=== PATIENT | male | born 1950 | race Caucasian/White ===

== ENCOUNTER 2016-08-27 08:37 | Inpatient (IN) | payer BC ==
--- NOTE | ~2016-08-27 | HP ---
History And Physical [place] [id number] [place]. [address] NAME: KAYLAN HUERTAS : 46 STATUS : [facility] [id number] AGE: 66 ADM/REG DATE : 08/27/16 MR#: [id number] REPORT SERV DATE: 08/27/16 DICTATED BY: GOOD RATLIFF DATE: 08/27/16 REPORT STATUS : Draft TRANSCRIBED BY: MODAshley DATE: 08/27/16 DATE OF ADMISSION: 08/27/2016 REASON FOR ADMISSION: Fractured orbit and syncopal episode. HISTORY OF PRESENT ILLNESS: This is a 66-year-old white male, who has been having the flu for the last week prior to that he had some sinusitis. He had been seeing his primary care physician Dr. Anton at the [facility], and was on some medication. He got up to go to the bathroom today, was going to brush his teeth. He fell out, loss of consciousness. Hit the floor. He does have a history of coronary artery stenting in the past for atherosclerotic cardiovascular disease. He does note that his atorvastatin does make him sleepy in the morning. He suspect this may be the problem. He does not know how long he was out. His neighbor Dr. Dahiana Barnes came to see about him and ambulance was summoned. The patient was brought to the emergency room at [facility]. Dr. Cornell Benavides evaluated the patient in the emergency room, and did a suture repair of a laceration over his right eye. He has tremendous ecchymoses on the right side. The patient was subjected to a CT scan of the face, and it does show evidence of an orbital floor depressed consistent with a blowout fracture. There are gas and hematoma extending into the extraconal portion. There does not appear to be any entrapment of the muscles. He has zygomatic arch on the right side that is slightly bowed suggesting some trauma. There are evidence of nasal bone fractures on the right and the left side in the anterior and also fractured nasal septum. The medial and posterior wall of the right maxillary sinus represent a tripod type of fracture with opacification of the right maxillary sinus. The frontal sinuses are intact. The orbital rim demonstrates nondisplaced right-sided fracture, and there appears to be more sharply defined area consistent with the fracture perhaps on the left side. The lateral orbital wall on the right side is comminuted. Dr. Jacques, the patient's Ear, Nose, and Throat doctor was contacted. He does not do facial trauma and deferred to Plastic Surgery. Dr. Anthony Pham is business development consultant and Dr. Darnell Pederson answered. He believes this is an elective repair at some point in the future, and we will see him in the office early next week through Dr. Renny Coleman. Dr. Domingo Lynne is his automotive service consultant. I called in Dr. Calzada, business development consultant. The patient's vision is improving and he felt that he could be seen in the office on Tuesday. We are left with a man who was sick during the last week, has a syncopal episode this morning after standing up, and will be admitted to observation for consideration of need for further hospitalization. PAST MEDICAL HISTORY: He has had no hospitalizations here for some time. He did have a coronary stent back in 2009, records have been purged. HOME MEDICATIONS: Include the following: Tylenol 1000 mg three times a day as needed, atorvastatin 10 mg p.o. daily, Effient 10 mg p.o. daily after the cardiac stent, and levothyroxine 25 mcg p.o. daily. History And Physical [address] [address] NAME: KAYLAN HUERTAS : 46 STATUS : ADM IN [facility]#: [id number] AGE: 66 ADM/REG DATE : 08/27/16 MR#: [id number] REPORT SERV DATE: 08/27/16 DICTATED BY: GOOD RATLIFF DATE: 08/27/16 REPORT STATUS : Draft TRANSCRIBED BY: ENMA DATE: 08/27/16 ALLERGIES: HE IS ALLERGIC TO THE FOLLOWING THINGS: FLOUNDER, GREEN BEANS, ORANGES, SEEDS AND NUTS, SPINACH AND TURKEY. SOCIAL HISTORY: He is . His last year. 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 [place] He attends [employer], and does not smoke cigarettes. He does not take any alcohol. FAMILY HISTORY: He is from [place], he has some siblings live in [place], does not have their help very much, he had two brothers and two sisters. Mother and father had high blood pressure. He has one daughter and son who live in the local area. REVIEW OF SYSTEMS: He had no chest pain or shortness of breath. No fever, chills, or night sweats. He does not know why he passed out, does not know how long he was out. He did have stool and bladder incontinence. He has had no fits, seizures, convulsions before. No melena or hematemesis. No chest pain or shortness of breath. No cough. He did have the flu recently, but no recent fever, chills, or night sweats. The remainder of the review of systems is negative. PHYSICAL EXAMINATION: GENERAL: White male, in no acute distress. VITAL SIGNS: His blood pressure was 126/72 on arrival, with a heart rate of 61, respiratory rate 19, and oxygen saturation 96%. HEENT: Huge ecchymoses on the right side, slit can be seen only of the eye and without full examination of the left side, has extraocular moves that are intact. Sclerae are clear. Conjunctivae pink. NECK: No bruit. No JVD. There is no adenopathy. CHEST: Clear to A and P. HEART: Regular S1, S2 without murmur, gallop, or click. ABDOMEN: Soft, nontender. Bowel sounds are positive. EXTREMITIES: Have no edema. Distal pulses are intact dorsalis pedis, posterior tibial. NEUROLOGIC: He withdraws to plantar stimulation. Shift Production Associate is equal and symmetric bilaterally. Coordination is intact. He has no tremor. LYMPHATICS: Negative. SKIN: Marked ecchymoses on the right side laceration now repaired by Dr. Benavides above the right eye. LABORATORY DATA: The CT scan of the face is as above. The CT scan of the brain showed intracranial portion negative. Sodium 135, potassium 3.6, creatinine 1.3, BUN 22, and glucose 115. Troponin 0.03. Magnesium 2.1. The chest showed COPD with no focal airspace disease. Hemoglobin was 14.3, hematocrit 38.9, platelet count 125,000, and white count 8.5. INR is 1.2. ASSESSMENT: History And Physical [address] [address] NAME: KAYLAN HUERTAS : 46 STATUS : ADM IN PAT#: [id number] AGE: 66 ADM/REG DATE : 08/27/16 MR#: [id number] REPORT SERV DATE: 08/27/16 DICTATED BY: GOOD RATLIFF DATE: 08/27/16 REPORT STATUS : Draft TRANSCRIBED BY: ENMA DATE: 08/27/16 1. Marked right-sided ecchymosis. 2. Laceration of the right forehead. 3. Multiple facial bone injuries including right zygoma, but right orbital blowout fracture and fracture of the right lateral wall. He has no diplopia at this time. Dr. Darnell Pederson says that this he would like to repair and the patient should be followed up in the office on Tuesday. He has a fracture of the nose and nasal bones of both right and left. Plastics will again take care of this problem. 4. Syncopal episode. Likely postural hypotension. We will check a blood pressure when he is able to stand up. 5. Arteriosclerotic cardiovascular disease. 6. Recent flu-like illness. 7. Hypothyroidism. PLAN: Admitted to observation for outpatient followup with needy consultants at the Plastic Surgery Dr. Pederson's colleague Dr. Renny Coleman and follow up with Dr. Domingo Lynne's colleague Dr. Calzada early next week. LESLIE/ENMA Good Ratliff M.D. / [id number] CC: Dominick Huerta M.D. Raymond Lindsey M.D. Mark Brzezienski, M.D. Joseph Busch, M.D. Jimmy Lee Waldrop, M.D. Michael W. Yablick, MD Jason Rehm, M.D.
--- NOTE | ~2016-08-27 | DS ---
Discharge Summary [facility] [address] [place]. [address] NAME: KAYLAN HUERTAS : 46 STATUS : DIS IN PAT#: [id number] AGE: 66 ADM/REG DATE : 08/27/16 MR#: [id number] REPORT SERV DATE: 09/02/16 DICTATED BY: VAN WAGNER DATE: 09/01/16 REPORT STATUS : Draft TRANSCRIBED BY: ENMA DATE: 09/01/16 ADMISSION DATE: 08/27/2016 DISCHARGE DATE: 09/01/2016 DISCHARGE DIAGNOSES: 1. Ground level fall. 2. Syncopal episode. 3. Flu-like illness, resolved. 4. Hypothyroidism. 5. History of coronary artery disease status post PCI. 6. Multiple facial bone injuries including right zygoma, but right orbital blowout fracture and fracture of the right lateral wall. 7. Nasal bone, both right and left, fracture. 8. Asymptomatic bradycardia. DISCHARGE CONDITION: Stable. HISTORY OF PRESENT ILLNESS: For detailed HPI please make reference to Dr. Javier Haywood's dictation on 08/27/2016. In summary, this is a 66-year-old male, who presented to the hospital after a ground-level fall at home. The patient reported that he had a flu-like symptom of a week's duration prior to presentation, and he reported that on the day of presentation, he woke up in the morning, he was feeling extremely fatigue and tired, while standing to approach his seat, suddenly he felt extremely weak and passed out in the bathroom, and he hit his face on the floor. His neighbor found him on the floor and then subsequently called the EMS, who brought him to the emergency room for further evaluation. In the emergency room, he was noted to have a laceration around the eye with evidence of ecchymosis around the right eye. A CT scan of the head and face was done that shows multiple facial fracture, no evidence of acute intracranial bleed noted. The patient was admitted to the Hospitalist Service for further evaluation. HOSPITAL COURSE: 1. Ground level fall secondary due to syncopal episode following an acute flu-like illness. The patient reported that prior to the fall he has been having progressive generalized weakness of a week duration. On the day of the fall he stated he felt extremely weak and tired prior to the fall. He had no chest pain, had no palpitation, and had no seizure-like activity. He said he fell out because he felt very weak and his legs gave up on him and subsequently passed out after he hit the floor. The patient reported that the fall was due to extreme fatigue due to the febrile illness. No evidence of orthostatic hypotension noted throughout the course of this admission. The patient was placed on cardiac telemonitoring. No malignant arrhythmia is noted on cardiac tele throughout the course of admission. The patient had intermittent episode of bradycardia with the heart rate in the upper 50s ranging from 55 into the 60s. However, the patient did not have any symptoms with these episodes of bradycardia. The patient reported that his baseline heart rate is usually in the 50s because he is a known athlete, who walk, exercise, and drives his bike for 15 miles a day during summertime and when the weather is in good condition. Hence this is the reason for his Discharge Summary [address] [place]. [address] NAME: KAYLAN HUERTAS : 46 STATUS : DIS IN PAT#: [id number] AGE: 66 ADM/REG DATE : 08/27/16 MR#: [id number] REPORT SERV DATE: 09/02/16 DICTATED BY: VAN WAGNER DATE: 09/01/16 REPORT STATUS : Draft TRANSCRIBED BY: ENMA DATE: 09/01/16 known bradycardia. The patient had an echocardiogram during the course of this admission that shows normal ejection fraction. Also a carotid Doppler that shows no evidence of carotid stenosis. Physical Therapy evaluated the patient, recommended the patient to be discharged to acute rehab. At the time of discharge, the patient was discharged to acute rehab for further physical therapy and strengthening. 2. Multiple facial fracture. Prior the CT scan done on presentation it was noted that the patient sustained zygomatic fracture with associated extensive nasal plate fractures and nasal septal fracture on the right side. Also noted is orbital floor was depressed and there was a blow out fracture noted. Also noted was zygomatic arch that was slightly bowed on the right side suggesting trauma. The patient had no further episodes of bleeding around the eye after suture was placed throughout the course of this admission. The patient's vision remained intact. No diplopia and no blurry vision. At the time of presentation, Dr. Haywood, the admitting physician, had placed a call to the patient's primary edge inker uppers office, Dr. Domingo Lynne; however, Dr. Calzada answered the call and reported that since the patient's vision was intact that the patient could follow up as an outpatient. At the time of discharge, the patient was advised to follow up with edge inker uppers within one week of discharge. Also at the time of admission, plastic surgeon were contacted (Dr. Anthony Pham), who recommended an elective outpatient repair of the patient's facial-nasal fracture. The patient was scheduled to follow up with plastic surgeon within one week of discharge. 3. History of coronary artery disease status post PCI in 2009. No evidence of chest pain throughout the course of this admission. EKG on presentation shows sinus rhythm, no ST- T wave changes. Troponin less than 0.03. No chest pain reported throughout the course of this admission. The patient was advised to continue followup with Cardiology as an outpatient. 4. Hypothyroidism. The patient's TSH was 2.4. The patient was continued on regular dose of levothyroxine, and asked to follow up with primary care physician as an outpatient. DISCHARGE DISPOSITION: Discharged to subacute rehab. DISCHARGE ACTIVITY: As tolerated. DISCHARGE DIET: Low-salt diet. DISCHARGE FOLLOWUP: The patient to follow up with plastic surgeon, edge inker uppers, and primary care physician within one week of discharge. ANGELA/ENMA Van Wagner MD / [id number] CC: Discharge Summary [address] [address] NAME: KAYLAN HUERTAS : 46 STATUS : DIS IN PAT#: [id number] AGE: 66 ADM/REG DATE : 08/27/16 MR#: [id number] REPORT SERV DATE: 09/02/16 DICTATED BY: VAN WAGNER DATE: 09/01/16 REPORT STATUS : Draft TRANSCRIBED BY: MODL DATE: 09/01/16 MD Kaylan Byrd D.O. Michael W. Yablick, MD John D Watson, MD Jason Rehm, M.D. Charles Kirby, M.D. David Bosshardt, M.D.
[~2016-08-27 08:37] MED LIST: LEVOTHYROXIN25 MCG PO
[2016-08-27 08:46] LABS: BASOPHILS 0 %; EOSINOPHILS 0 %; ER CBC TAT 0 Hrs 14 Mins; HEMATOCRIT 38.9 % (40.0-51.0); HEMOGLOBIN 14.3 g/dL (13.6-17.8); IMMATURE GRANULOCYTES 0.1 %; IMMATURE GRANULOCYTES ABSOLUTE 0.01 10/3/uL (0.0-0.11); LYMPHOCYTES 3.5 %; MEAN CORPUS HGB CONC 36.8 g/dL (32.0-36.0); MEAN CORPUSCULAR HEMOGLOB 34.1 pg (26.0-34.0); MEAN CORPUSCULAR VOLUME 92.8 fL (80-100); MEAN PLATELET VOLUME 11.3 fL (9.2-13.0); MONOCYTES 7.4 %; MONOCYTES ABSOLUTE 0.63 10/3/uL (0.21-1.20); NEUTROPHILS ABSOLUTE 7.59 10/3/uL (2.02-8.40); PLATELET COUNT 125 10/3/uL (150-400); RBC DISTRIBUTION WIDTH 11.9 % (12.0-16.0); RED CELL COUNT 4.19 10/6/uL (4.7-6.1); WHITE BLOOD CELLS 8.5 10/3/uL (4.5-10.5)
[2016-08-27 08:52] LABS: MANUAL DIFF NO %
[2016-08-27 08:54] LABS: INTERNATIONAL NORMAL RATI 1.2 UNITS (-); PARTIAL THROMBO TIME 35.3 SEC (22.5-37.2); PROTIME (NOT ORD) 15.4 SEC (12.0-14.5)
[2016-08-27 09:06] LABS: CALCIUM, SERUM 8.1 MG/DL (8.5-10.4); CHEST PAIN PROFILE TAT 0 Hrs 28 Mins; CHLORIDE, SERUM 102 MMOL/L (96-112); CO2 (CARBON DIOXIDE) 24 MMOL/L (24-34); CREATININE 1.03 MG/DL (0.70-1.30); GFR AFRICAN AMERICAN 86 ML/MIN (>=60); GFR NON AFRICAN AMERICAN 74 ML/MIN (>=60); POTASSIUM, SERUM 3.9 MMOL/L (3.5-5.3); SODIUM, SERUM 135 MMOL/L (135-148); TROPONIN I 0.03 NG/ML (<0.05)
[2016-08-27 09:08] LABS: BUN (BLOOD UREA NITROGEN) 22 MG/DL (6-23); GLUCOSE, SERUM 115 MG/DL (60-99)
[2016-08-27] MEDS ORDERED: SYN.025B PO (11:14)
[2016-08-27] MEDS ORDERED: EFFIENT10 PO (11:14)
[2016-08-27] MEDS ORDERED: LIPITOR10 PO (11:14)
[2016-08-27] MEDS ORDERED: ACET500CAP PO (11:14)
[2016-08-27 15:46] LABS: INFLUENZA A SCREEN NEGATIVE (NEGATIVE); INFLUENZA B SCREEN NEGATIVE (NEGATIVE)
[2016-08-28 07:36] LABS: BASOPHILS 0 %; EOSINOPHILS 0 %; HEMOGLOBIN 12.6 g/dL (13.6-17.8); IMMATURE GRANULOCYTES 0.2 %; IMMATURE GRANULOCYTES ABSOLUTE 0.01 10/3/uL (0.0-0.11); LYMPHOCYTES 12.6 %; LYMPHOCYTES ABSOLUTE 0.66 10/3/uL (0.67-4.30); MEAN CORPUSCULAR HEMOGLOB 33.7 pg (26.0-34.0); MEAN CORPUSCULAR VOLUME 93.6 fL (80-100); MEAN PLATELET VOLUME 10.6 fL (9.2-13.0); MONOCYTES 11.5 %; NEUTROPHILS 75.7 %; NEUTROPHILS ABSOLUTE 3.97 10/3/uL (2.02-8.40); PLATELET COUNT 110 10/3/uL (150-400); RBC DISTRIBUTION WIDTH 12.1 % (12.0-16.0); RED CELL COUNT 3.74 10/6/uL (4.7-6.1); WHITE BLOOD CELLS 5.2 10/3/uL (4.5-10.5)
[2016-08-28 07:38] LABS: HEMATOCRIT 35 % (40.0-51.0); MANUAL DIFF NO %
[2016-08-28 07:44] LABS: BUN (BLOOD UREA NITROGEN) 17 MG/DL (6-23); CALCIUM, SERUM 7.6 MG/DL (8.5-10.4); CHLORIDE, SERUM 105 MMOL/L (96-112); CO2 (CARBON DIOXIDE) 24 MMOL/L (24-34); CREATININE 0.94 MG/DL (0.70-1.30); GFR AFRICAN AMERICAN 96 ML/MIN (>=60); GFR NON AFRICAN AMERICAN 83 ML/MIN (>=60); GLUCOSE, SERUM 98 MG/DL (60-99); POTASSIUM, SERUM 4.1 MMOL/L (3.5-5.3); SODIUM, SERUM 137 MMOL/L (135-148)
[2016-08-29 05:55] LABS: BASOPHILS 0.3 %; BASOPHILS ABSOLUTE 0.01 10/3/uL (0.0-0.16); EOSINOPHILS 0.3 %; EOSINOPHILS ABSOLUTE 0.01 10/3/uL (0.0-0.53); HEMATOCRIT 33.8 % (40.0-51.0); HEMOGLOBIN 12.1 g/dL (13.6-17.8); IMMATURE GRANULOCYTES 0.3 %; IMMATURE GRANULOCYTES ABSOLUTE 0.01 10/3/uL (0.0-0.11); LYMPHOCYTES 18.8 %; LYMPHOCYTES ABSOLUTE 0.72 10/3/uL (0.67-4.30); MANUAL DIFF NO %; MEAN CORPUS HGB CONC 35.8 g/dL (32.0-36.0); MEAN CORPUSCULAR HEMOGLOB 33.6 pg (26.0-34.0); MEAN CORPUSCULAR VOLUME 93.9 fL (80-100); MEAN PLATELET VOLUME 11.2 fL (9.2-13.0); MONOCYTES 12.3 %; MONOCYTES ABSOLUTE 0.47 10/3/uL (0.21-1.20); NEUTROPHILS ABSOLUTE 2.61 10/3/uL (2.02-8.40); PLATELET COUNT 144 10/3/uL (150-400); WHITE BLOOD CELLS 3.8 10/3/uL (4.5-10.5)
[2016-08-29 06:14] LABS: A/G RATIO 0.9 (0.7-1.9); ALBUMIN 2.6 G/DL (3.5-5.0); ALKALINE PHOSPHATASE 48 U/L (45-117); BUN (BLOOD UREA NITROGEN) 14 MG/DL (6-23); CALCIUM, SERUM 7.7 MG/DL (8.5-10.4); CHLORIDE, SERUM 106 MMOL/L (96-112); CO2 (CARBON DIOXIDE) 24 MMOL/L (24-34); CREATININE 0.86 MG/DL (0.70-1.30); GFR AFRICAN AMERICAN 103 ML/MIN (>=60); GFR NON AFRICAN AMERICAN 89 ML/MIN (>=60); GLOBULIN 2.8 G/DL (2.5-4.1); GLUCOSE, SERUM 88 MG/DL (60-99); POTASSIUM, SERUM 4.1 MMOL/L (3.5-5.3); SGOT(AST) 36 U/L (5-40); SGPT(ALT) 23 U/L (5-65); SODIUM, SERUM 138 MMOL/L (135-148); TOTAL BILIRUBIN 1.2 MG/DL (0-1.2); TOTAL PROTEIN 5.4 G/DL (6.0-8.5)
[2016-08-31 16:41] LABS: BASOPHILS 0.4 %; BASOPHILS ABSOLUTE 0.01 10/3/uL (0.0-0.16); EOSINOPHILS 1.2 %; EOSINOPHILS ABSOLUTE 0.03 10/3/uL (0.0-0.53); HEMATOCRIT 32.9 % (40.0-51.0); HEMOGLOBIN 11.7 g/dL (13.6-17.8); IMMATURE GRANULOCYTES 0.4 %; IMMATURE GRANULOCYTES ABSOLUTE 0.01 10/3/uL (0.0-0.11); MEAN CORPUS HGB CONC 35.6 g/dL (32.0-36.0); MEAN CORPUSCULAR HEMOGLOB 32.2 pg (26.0-34.0); MEAN CORPUSCULAR VOLUME 90.6 fL (80-100); MEAN PLATELET VOLUME 10.9 fL (9.2-13.0); MONOCYTES 12.4 %; NEUTROPHILS 56.6 %; NEUTROPHILS ABSOLUTE 1.36 10/3/uL (2.02-8.40); PLATELET COUNT 134 10/3/uL (150-400); RED CELL COUNT 3.63 10/6/uL (4.7-6.1); WHITE BLOOD CELLS 2.4 10/3/uL (4.5-10.5)
[2016-08-31 16:42] LABS: MANUAL DIFF NO %
[2016-08-31 16:54] LABS: ALBUMIN 2.6 G/DL (3.5-5.0); BUN (BLOOD UREA NITROGEN) 13 MG/DL (6-23); CALCIUM, SERUM 8.1 MG/DL (8.5-10.4); CHLORIDE, SERUM 105 MMOL/L (96-112); CO2 (CARBON DIOXIDE) 28 MMOL/L (24-34); CREATININE 0.93 MG/DL (0.70-1.30); GFR AFRICAN AMERICAN 97 ML/MIN (>=60); GFR NON AFRICAN AMERICAN 84 ML/MIN (>=60); GLUCOSE, SERUM 83 MG/DL (60-99); PHOSPHORUS, SERUM 3.3 MG/DL (2.5-4.5); POTASSIUM, SERUM 4.5 MMOL/L (3.5-5.3); SODIUM, SERUM 140 MMOL/L (135-148)
== END 2016-09-01 17:15 | DRG 158 ==
LOC: ER 08:37 → 2SO 11:58
PROVIDERS: Emergency Medicine; Hospitalist; Internal Medicine
DX: S02.40CA Maxillary fracture, right side, initial encounter for closed fracture (principal); S02.31XA Fracture of orbital floor, right side, initial encounter for closed fracture; J44.9 Chronic obstructive pulmonary disease, unspecified; S02.81XA Fracture of other specified skull and facial bones, right side, initial encounter for closed fracture; S02.40EA Zygomatic fracture, right side, initial encounter for closed fracture; W18.30XA Fall on same level, unspecified, initial encounter; R55 Syncope and collapse; E03.9 Hypothyroidism, unspecified; I25.10 Atherosclerotic heart disease of native coronary artery without angina pectoris; R00.1 Bradycardia, unspecified; S01.81XA Laceration without foreign body of other part of head, initial encounter; S02.2XXA Fracture of nasal bones, initial encounter for closed fracture
CPT/HCPCS: 70450; 70486; 71010; 71020; 80048; 80053; 80069; 83735; 84145; 84443; 84484; 85025; 85610; 85730; 87804; 90471; 90714; 93005; 93306; 93880; 97110-GP; 97116-GP; 97161-GP; 97165-GO; 99291; A9270-GY; G0378